=== PATIENT | male | born 1975 | race Hispanic/Latino ===

== ENCOUNTER 2020-12-06 17:16 | Emergency (ER) | payer OTHER ==
[~2020-12-06] VITALS: Ht 175.3 cm; Wt 68.0 kg
[2020-12-06 17:19] VITALS: BP 97/64
[2020-12-06 17:50] VITALS: BP 109/73
[2020-12-06] MEDS ORDERED: LACTATED RINGERS 1000ML 1,000 ML IV ONE (18:00)
[2020-12-06 18:09] LABS: BASOPHILS % (AUTO) 0.6 % (0.0-5.0); EOSINOPHILS % (AUTO) 0.9 % (0.0-8.0); HEMATOCRIT 36.4 % (42-54); LYMPHOCYTES % (AUTO) 39.6 % (21.0-51.0); MEAN CORPUSCULAR HEMOGLOBIN 29.2 pg (27.0-33.0); MEAN CORPUSCULAR HGB CONC 35.2 g/dL (32.0-36.0); MEAN CORPUSCULAR VOLUME 83.1 fL (79-99); MONOCYTES % (AUTO) 9.4 % (3.0-13.0); NEUTROPHILS % (AUTO) 49.2 % (40.0-77.0); PLATELET COUNT (AUTO) 157 K/uL (130-400); RED BLOOD CELL COUNT(AUTO) 4.38 MIL/uL (4.50-6.20); RED CELL DISTRIBUTION WIDTH 15.1 % (11.0-15.5); WHITE BLOOD COUNT (AUTO) 3.2 K/uL (4.8-10.8)
[2020-12-06 18:20] LABS: CREATININE 1.1 mg/dL (0.5-1.5); POTASSIUM 3.2 mmol/L (3.5-5.1)
[2020-12-06 18:25] LABS: ALBUMIN 3.9 g/dL (3.5-5.0); BILIRUBIN,TOTAL 0.9 mg/dL (0.2-1.0); TOTAL PROTEIN, SERUM 7.6 g/dL (6.0-8.3)
[2020-12-06 19:16] VITALS: BP 119/76
[2020-12-06] MEDS ORDERED: 0.9%NACL 1000ML 1,000 ML IV ONE (20:00)
[2020-12-06 21:26] VITALS: BP 109/70
[2020-12-06] MEDS ORDERED: ONDA4TAB10 PO (21:53)
[2020-12-06] MEDS ORDERED: METO-296 PO (21:53)
[2020-12-06] MEDS ORDERED: CYCL10TA7 PO (21:53)
[2020-12-06] MEDS ORDERED: PANT40TA54 PO (21:53)
[2020-12-06] MEDS ORDERED: DICY20TA2 PO (21:53)
[2020-12-06] MEDS ORDERED: ONDANSETRON 4MG INJ IVP ONE (22:00)
[2020-12-06] MEDS ORDERED: METOCLOPRAMIDE 10 MG/2 ML VIAL IVP ONE (22:00)
[2020-12-06] MEDS ORDERED: KETOROLAC 30MG VIAL (30MG/ML) IV ONE (22:00)
[2020-12-06] MEDS ORDERED: DiphenhydrAMINE HCL 50 MG/ML VIAL IV ONE (22:00)
[2020-12-06] MEDS ORDERED: PANTOPRAZOLE 40 MG/VIAL IVP SCH (22:00)
[2020-12-06] MEDS ORDERED: FAMOTIDINE 20MG VIAL IV ONE (22:00)
[2020-12-06 22:58] VITALS: BP 103/67
== END 2020-12-06 23:14 | disposition home or self-care (01) ==
LOC: EDH 17:16
DX: E86.0 Dehydration (principal); K29.70 Gastritis, unspecified, without bleeding; M62.838 Other muscle spasm; F20.9 Schizophrenia, unspecified
CPT/HCPCS: 36415; 71045; 80053; 83605; 85025; 87040 ×2; 93005; 96361; 96374; 96375; 99285; C9113; J1200; J1885; J2405; J2765; J3490; J7030; J7120